=== PATIENT | female | born 1985 | race Caucasian/White ===

== ENCOUNTER 2016-09-17 22:30 | Emergency (ER) | payer OTHER ==
[~2016-09-17] VITALS: Ht 172.7 cm; Wt 71.9 kg
[~2016-09-17 22:30] MED LIST: VITACAP26 PO
[2016-09-17 22:31] VITALS: TEMP 37.3; Ht 172.7 cm; Wt 71.9 kg
[2016-09-17] MEDS ORDERED: GUAI1TAB55 PO (22:59)
[2016-09-17] MEDS ORDERED: AZIT250T PO (23:44)
[2016-09-17] MEDS ORDERED: ALBUTEROL HFA 8 GM INHALER INH ONE (23:45)
[2016-09-17] MEDS ORDERED: AZITHROMYCIN 250 MG TAB PO ONE (23:45)
[2016-09-17 23:55] VITALS: BP 116/71; PULSE 84; O2SAT 93
--- NOTE | 2016-09-18 06:33 | DIAGNOSTIC IMAGING REPORT ---
CHEST 2 VIEWS ROUTINE CLINICAL HISTORY: coughing/wheezing COMPARISON STUDY: No previous studies for comparison. FINDINGS: The heart is normal in size. There is minor interstitial thickening at the left lung base. There is no lobar consolidation. There are no pleural effusions. There is no failure.[ IMPRESSION: Minimal interstitial opacities at the left lung base. No evidence of lobar consolidation. Electronically signed by: Richy Wilson M.D. 09/18/2016 6:31 AM Dictated Date/Time: 09/18/2016 6:30 AM
--- NOTE | 2016-09-18 22:58 | EMERGENCY ROOM VISIT NOTE ---
History First contact with patient: 22:38 Chief Complaint: FLU LIKE SX Stated Complaint: COLD/BODY ACHE,CONGESTION,COUGH History of Present Illness The patient is a 31 year old female who presents to the Emergency Room with complaints of coughing and wheezing with body aches for the past 3-4 days. The patient has not had significant fever or chills at home. Her cough is not productive. She is without distinct shortness of breath, chest pain, abdominal pain, nausea, or vomiting. She does have some sinus congestion with her symptoms. There is a very mild sore throat that does not affect swallowing. She has not taken anything [id number] today for her symptoms. She rates her discomfort a 6/10. Review of Systems More than 10 systems were reviewed and otherwise negative with the exception of history of present illness. Past Medical/Surgical History Medical Problems: (1) No significant past medical history Surgical Problems: (1) History of appendectomy Family History FH: diabetes mellitus FH: hypertension FH: kidney disease Social History Smoking Status: Current Every Day Smoker Alcohol Use: none Marital Status: Housing Status: lives with family Occupation Status: unemployed Current/Historical Medications Scheduled Azithromycin (Zithromax), 250 MG PO DAILY Scheduled PRN Guaifenesin Ext Rel (Mucinex Ext Rel), 600 MG PO Q12 PRN for CONGESTION Allergies Coded Allergies: No Known Allergies (Unverified , 09/17/16) Physical Exam Vital Signs Date Time Temp Pulse Resp B/P Pulse Ox O2 Delivery O2 Flow Rate FiO2 09/17/16 23:55 84 18 116/71 93 09/17/16 22:31 37.3 83 20 118/77 93 Room Air Pain Rating (0-10): 0 Physical Exam VITALS: Vitals are noted on the nurse's note and reviewed by myself. Vital signs stable. GENERAL: Well-developed, well-nourished, white female, who is in no acute distress and resting comfortably. Patient is cooperative with the examination. HEAD: Normocephalic atraumatic. EARS: External ear normal. External auditory canals clear, tympanic membranes pearly reeves without erythema or effusion bilaterally. EYES: Pupils equal round and reactive to light and accommodation. Conjunctivae without injection, sclerae without icterus. Extraocular movements intact. NOSE: Patent, turbinates without inflammation or discharge. MOUTH: Mucous membranes moist. Tonsils are not enlarged. Pharynx without erythema, blood, or exudate. Uvula midline. Airway patent. NECK: Supple without nuchal rigidity. No lymphadenopathy. No thyromegaly. Cervical spine is nontender. HEART: Regular rate and rhythm without murmurs gallops or rubs. LUNGS: Coarse breath sounds with scant wheezing and rhonchi throughout ABDOMEN: Positive normal bowel sounds x 4. Soft, nontender, without masses or organomegaly. No guarding or rebound tenderness. MUSCULOSKELETAL: No muscle atrophy, erythema, or edema noted. Full range of motion without joint tenderness in all extremities. Medical Decision & Procedures ER Provider Diagnostic Interpretation: CHEST 2 VIEWS ROUTINE CLINICAL HISTORY: coughing/wheezing COMPARISON STUDY: No previous studies for comparison. FINDINGS: The heart is normal in size. There is minor interstitial thickening at the left lung base. There is no lobar consolidation. There are no pleural effusions. There is no failure.[ IMPRESSION: Minimal interstitial opacities at the left lung base. No evidence of lobar consolidation. Medications Administered Medications (Trade) Dose Ordered Sig/Jim Route Start Time Stop Time Status Last Admin Dose Admin Azithromycin (Zithromax Tab) 500 mg NOW ONCE PO 09/17/16 23:45 09/17/16 23:46 DC 09/17/16 23:55 500 MG Albuterol (Ventolin Hfa Inhaler) 2 puffs NOW ONCE INH 09/17/16 23:45 09/17/16 23:46 DC 09/17/16 23:54 2 PUFFS ED Course Physical exam and history were performed. Nursing notes and EMR were reviewed. Patient appears to have coughing and wheezing with rhonchi on examination. The patient does not appear toxic on exam. X-ray was performed and does not show obvious pneumonia. Clinically I suspect that she has a bronchitis. The patient will be treated with Zithromax and albuterol. She was given her first dose of Zithromax here in the department. I recommended that she follow with her primary care physician in the next few days for recheck. She was otherwise invited back to the ER with any new, worsening, or concerning symptoms. The chart was completed utilizing [employer] Voice Recognition Software. Grammatical errors, random word insertions, pronoun errors, and incomplete sentences are an occasional consequence of this system due to software limitations, ambient noise, and hardware issues. Any formal questions or concerns about the content, text, or information contained within the body of this dictation should be directly addressed to the provider for clarification. . Medical Decision Differential diagnosis: Etiologies such as viral syndrome, otitis, pharyngitis, pneumonia, influenza, meningitis, urinary tract infection, sepsis, bacteremia, as well as others were entertained. Impression Primary Impression: Acute bronchitis Departure Information Dispostion Home / Self-Care Condition GOOD Prescriptions Azithromycin (Zithromax) 250 Mg Tab 250 MG PO DAILY for 4 Days, #4 TAB Prov: John Abbott PA-C 09/17/16 Forms HOME CARE DOCUMENTATION FORM, Work Instructions, Additional Instructions: Patient was seen and evaluated today in the emergency department fo medical care. Return to work on 09/20/2016. Please excuse. IMPORTANT VISIT INFORMATION Patient Instructions My [facility] Additional Instructions You were seen and evaluated today on an emergency basis only. This is not a substitute for, or an effort to provide, complete comprehensive medical care. It is not possible to recognize and treat all injuries or illnesses in a single emergency department visit. For this reason it is recommended that you followup with your primary care physician this week with any ongoing or persistent symptoms. Take Zithromax 250 mg daily for the next 4 days Use your albuterol inhaler 2 puffs every 4-6 hours as needed for coughing or wheezing Drink plenty of fluids and remain well hydrated You are welcome to return to the emergency department anytime with new, worsening, or concerning symptoms. Work Instructions Additional Work Instructions: Patient was seen and evaluated today in the emergency department for medical care. Return to work on 09/20/2016. Please excuse.
== END 2016-09-17 23:55 | disposition home or self-care (01) ==
LOC: C.EDB 22:30
DX: J20.9 Acute bronchitis, unspecified (principal); F17.200 Nicotine dependence, unspecified, uncomplicated; Z83.3 Family history of diabetes mellitus; Z82.49 Family history of ischemic heart disease and other diseases of the circulatory system

== ENCOUNTER 2016-11-16 16:55 | Emergency (ER) | payer OTHER ==
[~2016-11-16] VITALS: Ht 172.7 cm; Wt 71.4 kg
[~2016-11-16 16:55] MED LIST changes: +GUAI1TAB55 PO; -VITACAP26 PO
[2016-11-16 16:57] VITALS: TEMP 36.7; Ht 172.7 cm; Wt 71.4 kg
[2016-11-16] MEDS ORDERED: DOCUSATE SODIUM 100 MG/10 ML UDC PO STA (17:12)
[2016-11-16 18:45] VITALS: BP 127/75; PULSE 63; O2SAT 99
--- NOTE | 2016-11-16 21:14 | EMERGENCY ROOM VISIT NOTE ---
ED Visit Note First contact with patient: 17:06 Chief Complaint: My right ear feels blocked. History of Present Illness: Ms. Polk is a 31-year-old white female who ambulates into the ED complaining of a possible foreign body in the right ear canal and decreased hearing. Patient reports her symptoms started approximately 2 weeks ago and they have been constant. She has attempted to get in with a primary care provider but has been on unsuccessful due to her health insurance. She reports that she has been irrigating her ear canal daily without any relief of symptoms. She also reports when she is irrigating she has not noted any foreign material coming from her ear but does report she feel there may be fluid in the ear because she hears a whooshing sensation in the ear. Currently she is reporting that she is not having any pain in the ear. She has not identified any aggravating or alleviating factors related to her symptoms. She has not taken any medications for her symptoms. Associated with her symptoms she reports hearing in her right ear is muffled and decreased. She denies headache, dizziness, lightheadedness, recent head trauma, previous significant ear diseases or surgeries, ear drainage, upper respiratory tract symptoms, nasal drainage, sore throat, fevers, chills, sweats, nausea/vomiting. Review of Systems: As noted above in history of present illness. Past Medical History: Status post appendectomy. Current Medications: Patient denies. Allergies to Medications: Patient denies. Social History: Patient is currently employed; she feels safe in her home environment; she admits to tobacco use and denies alcohol use. Physical Examination: Vital Signs: Date Time Temp Pulse Resp B/P Pulse Ox O2 Delivery O2 Flow Rate FiO2 11/16/16 18:45 63 18 127/75 99 11/16/16 16:57 36.7 79 18 129/ 98 Room Air GENERAL: 31-year-old female in mild distress due to symptoms, nontoxic-appearing , afebrile and hemodynamically stable. NEUROLOGICAL: Awake, alert and oriented to person, place and time. Answering questions appropriately and following commands. Normal gait. Good hand eye coordination. No focal motor or sensory deficits. SKIN: Warm, dry and pink. No soft tissue eruptions or trauma noted. HEENT: Atraumatic and normocephalic. No external ear tenderness. Left auditory canal is pink and patent. Left tympanic membrane is pearly reeves with normal light reflex. Right auditory canal is blocked with a cerumen impaction and the tympanic membrane cannot be visualized. She has no tracheal tenderness or erythema of the auditory canal. No preauricular or postauricular lymphadenopathy. No tenderness or erythema over the mastoid processes. ED Course: Patient is assessed as noted above. 5-6 drops of Colace was placed in the ear canal and she was allowed to rest with the affected ear elevated for approximately 20 minutes. Myself and the staff nurse on duty irrigated the ear canal with warm sterile saline and peroxide for approximately 30 minutes and was unable to dislodge her impaction. I did offer the patient to continue and she did not feel that was necessary and requested to be discharged. Patient was educated about today's findings and instructed on her treatment plan ; she verbalizes understanding and agreement with this plan. Clinical Impression: Right auditory canal cerumen impaction. Disposition: Patient discharged home in stable condition; prior to departure she was reassessed and remained that she was pain-free but was still having muffled hearing. Plan: Patient was encouraged to use ibuprofen or acetaminophen as needed for pain. Patient was encouraged to continue your get the ears as we discussed. Patient was encouraged to avoid putting Q-tips in the ear. Patient was encouraged to follow-up with her insurance company and request information on any local ENT specialist affiliated with her insurance. Patient was given the name of Dr. Murphy Duque, the ENT specialist on-call, for definitive care and treatment. Patient was encouraged return the ED for worsening symptoms, ear pain, worsening hearing changes, bloody drainage, fevers or any new/concerning symptoms.
== END 2016-11-16 18:46 | disposition home or self-care (01) ==
LOC: C.EDB 16:56 → C.EDD 18:46
DX: H61.21 Impacted cerumen, right ear (principal); Z72.0 Tobacco use

== ENCOUNTER → 2016-12-28 | Outpatient (CLI) | payer OTHER ==
[2016-12-28 14:46] LABS: URINE APPEARANCE CLEAR (CLEAR); URINE BILIRUBIN NEG (NEG); URINE COLOR YELLOW; URINE NITRITE NEG (NEG); URINE SPECIFIC GRAVITY 1.027 (1.000-1.030); UROBILINOGEN NEG (NEG)
[2016-12-28 15:03] LABS: MANUAL MICROSCOPIC REQUIRED? NO; REVIEW REQ? NO
== END | disposition home or self-care (01) ==
LOC: C.LABSPEC 13:41
PROVIDERS: ATTEND Obstetrics & Gynecology
DX: O99.330 Smoking (tobacco) complicating pregnancy, unspecified trimester (principal); Z3A.00 Weeks of gestation of pregnancy not specified

== ENCOUNTER → 2017-01-06 | Outpatient (CLI) | payer OTHER ==
[2017-01-06 17:18] LABS: BASO % 0.3 %; BASO ABS # 0.02 K/uL (0-0.2); COMPLETE YES; EOS % 1.1 %; HEMATOCRIT 38.8 % (37-47); IG% 0.1 %; LYMPH % 26.5 %; MEAN CELL VOLUME 89.2 fL (80-100); MEAN CORPUSCULAR HEMOGLOBIN 30.1 pg (25-34); MEAN CORPUSCULAR HGB CONC 33.8 g/dl (32-36); MEAN PLATELET VOLUME 10.1 fL (7.4-10.4); MONO % 5.4 %; NEUT % 66.6 %; PLATELET COUNT 178 K/uL (130-400); RED BLOOD COUNT 4.35 M/uL (4.2-5.4); WHITE BLOOD COUNT 7.93 K/uL (4.8-10.8)
[2017-01-10 02:32] LABS: CHLAMYDIA TRACH RNA*** NOT DETECTED (NOT DETECTED); GC (NEIS GONORRHOEAE)RNA** NOT DETECTED (NOT DETECTED)
== END | disposition home or self-care (01) ==
LOC: C.LAB1850 16:29
PROVIDERS: ATTEND Obstetrics & Gynecology
DX: Z36 Encounter for antenatal screening of mother (principal)

== ENCOUNTER → 2017-01-06 | Outpatient (CLI) | payer OTHER | LOC: C.PAPS 08:49 | PROVIDERS: ATTEND Obstetrics & Gynecology | DX: Z34.91 Encounter for supervision of normal pregnancy, unspecified, first trimester (principal) ==

== ENCOUNTER → 2017-02-28 | Outpatient (CLI) | payer OTHER ==
[2017-02-28 16:11] LABS: GTGD 50 Grams
== END | disposition home or self-care (01) ==
LOC: C.LAB1850 13:37
PROVIDERS: ATTEND Obstetrics & Gynecology
DX: Z34.91 Encounter for supervision of normal pregnancy, unspecified, first trimester (principal)

== ENCOUNTER → 2017-03-14 | Outpatient (CLI) | payer OTHER | END | disposition home or self-care (01) | LOC: C.PATHSPEC 15:42 | PROVIDERS: ATTEND Obstetrics & Gynecology | DX: R87.610 Atypical squamous cells of undetermined significance on cytologic smear of cervix (ASC-US) (principal); R87.612 Low grade squamous intraepithelial lesion on cytologic smear of cervix (LGSIL) ==

== ENCOUNTER → 2017-06-21 | Outpatient (CLI) | payer OTHER ==
[~2017-06-21] MED LIST changes: -GUAI1TAB55 PO; +PRENTAB26 PO
[2017-06-21 17:35] LABS: HEMATOCRIT 33.5 % (37-47); HEMOGLOBIN 11.2 g/dL (12.0-16.0)
== END | disposition home or self-care (01) ==
LOC: C.LAB1850 06-21 17:01 → EDSTATUS 06-22 09:49
PROVIDERS: ATTEND Obstetrics & Gynecology
DX: Z34.83 Encounter for supervision of other normal pregnancy, third trimester (principal)

== ENCOUNTER → 2017-06-21 | Outpatient (CLI) | payer OTHER | END | disposition home or self-care (01) | LOC: C.LABSPEC 17:41 | PROVIDERS: ATTEND Obstetrics & Gynecology | DX: Z34.83 Encounter for supervision of other normal pregnancy, third trimester (principal) ==

== ENCOUNTER → 2017-07-12 | Outpatient (CLI) | payer OTHER | END | disposition home or self-care (01) | LOC: C.LABSPEC 15:50 | PROVIDERS: ATTEND Obstetrics & Gynecology | DX: Z34.83 Encounter for supervision of other normal pregnancy, third trimester (principal) ==

== ENCOUNTER 2017-07-18 23:55 | Outpatient (CLI) | payer OTHER ==
[~2017-07-18] VITALS: Ht 170.2 cm; Wt 72.0 kg
[2017-07-19 00:40] VITALS: Ht 170.2 cm; Wt 72.0 kg
[2017-07-19] MEDS ORDERED: PRENTAB26 PO (21:37)
== END 2017-07-19 02:25 | disposition home or self-care (01) ==
LOC: C.LD 23:55 → C.OPB 23:55
PROVIDERS: ATTEND Obstetrics & Gynecology
DX: O62.9 Abnormality of forces of labor, unspecified (principal); Z3A.00 Weeks of gestation of pregnancy not specified

== ENCOUNTER 2017-07-19 20:33 | Outpatient (CLI) | payer OTHER ==
[~2017-07-19] VITALS: Ht 170.2 cm; Wt 83.2 kg
[2017-07-19 21:37] VITALS: Ht 170.2 cm; Wt 83.2 kg
[2017-07-19] MEDS ORDERED: PRENTAB26 PO (21:37)
== END 2017-07-19 23:52 | disposition home or self-care (01) ==
LOC: C.LD 20:33 → C.OPB 20:33
PROVIDERS: ATTEND Obstetrics & Gynecology
DX: Z34.83 Encounter for supervision of other normal pregnancy, third trimester (principal); Z3A.37 37 weeks gestation of pregnancy

== ENCOUNTER 2017-07-20 16:01 | Inpatient (IN) | payer OTHER ==
[~2017-07-20] VITALS: Ht 170.2 cm; Wt 83.2 kg
[2017-07-20] MEDS ORDERED: LACTATED RINGER'S 1000ML 1,000 ML IV PRN (16:22)
[2017-07-20] MEDS ORDERED: LACTATED RINGER'S 1000ML 1,000 ML IV SCH (16:22)
[2017-07-20 17:01] LABS: HEMATOCRIT 33.1 % (37-47); MEAN CELL VOLUME 91.7 fL (80-100); MEAN CORPUSCULAR HEMOGLOBIN 30.5 pg (25-34); MEAN CORPUSCULAR HGB CONC 33.2 g/dl (32-36); MEAN PLATELET VOLUME 11.2 fL (7.4-10.4); PLATELET COUNT 189 K/uL (130-400); RED CELL DISTRIBUTION WIDTH CV 14.1 % (11.5-14.5); RED CELL DISTRIBUTION WIDTH SD 46.7 fL (36.4-46.3); WHITE BLOOD COUNT 13.54 K/uL (4.8-10.8)
[2017-07-20 17:12] VITALS: Ht 170.2 cm; Wt 83.2 kg
[2017-07-20] MEDS ORDERED: FENTANYL CITRATE INJ 50 MCG/1 ML 2 ML VIAL ONE (17:41)
[2017-07-20] MEDS ORDERED: BUPIVACAINE 0.25% 30 ML VIAL ONE (17:41)
[2017-07-20] MEDS ORDERED: EpHEDrine SULFATE INJ 50 MG/ML AMP ONE (17:41)
[2017-07-20] MEDS ORDERED: FENTANYL 2MCG/ML ROPIV 1.25MG/ML 100ML BAG EPI ONE (17:42)
[2017-07-20] MEDS ORDERED: NALOXONE HCL INJ 1 MG in SODIUM CHLORIDE 0.9% 1000ML 1,000 ML IV PRN (18:51)
[2017-07-20] MEDS ORDERED: LACTATED RINGER'S 1000ML 500 ML IV PRN (18:51)
[2017-07-20] MEDS ORDERED: DiphenhydrAMINE HCL 50 MG/ML VIAL IV PRN (19:00)
[2017-07-20] MEDS ORDERED: FENTANYL 2MCG/ML ROPIV 1.25MG/ML 100ML BAG EPI PRN (19:00)
[2017-07-20] MEDS ORDERED: ONDANSETRON INJ 2 MG/ML 2 ML VIAL IV PRN (19:00)
[2017-07-20] MEDS ORDERED: NALOXONE HCL INJ 0.4 MG/1 ML VIAL/CARP IV PRN (19:00)
[2017-07-20] MEDS ORDERED: EpHEDrine SULFATE INJ 50 MG/ML AMP IV PRN (19:00)
[2017-07-20] MEDS ORDERED: NALBUPHINE HCL INJ 10 MG/ML AMP IV PRN (19:00)
[2017-07-20] MEDS ORDERED: OXYTOCIN 30 UNITS/500ML NSS IV ONE (21:13)
[2017-07-20] MEDS ORDERED: HYDROCORTISONE ACETATE 25 MG SUPP PR PRN (21:45)
[2017-07-20] MEDS ORDERED: OXYCODONE/ACETAMINOPHEN 5-325 TAB PO PRN (21:45)
[2017-07-20] MEDS ORDERED: LANOLIN OINT EXT PRN (21:45)
[2017-07-20] MEDS ORDERED: BENZOCAINE 20% AER SPR 82.5 GM CAN EXT PRN (21:45)
[2017-07-20] MEDS ORDERED: OXYTOCIN 30 UNITS/500ML NSS IV PRN (21:45)
[2017-07-20] MEDS ORDERED: ACETAMINOPHEN 325 MG TAB PO PRN (21:45)
[2017-07-20] MEDS ORDERED: SUPERCREAM 0.870 % 15GM JAR EXT PRN (21:45)
--- NOTE | 2017-07-20 22:13 | Anesthesia Procedure Note ---
Anesthesia Epidural Removal Nt Date & Time Jul 20, 2017 at 22:13 Vital Signs Pain Intensity: 8.0 Notes Mental Status: alert / awake / arousable, participated in evaluation Nausea / Vomiting: adequately controlled Pain: adequately controlled Airway Patency, RR, SpO2: stable & adequate BP & HR: stable & adequate Hydration State: stable & adequate Neuraxial Anesthesia: was administered Anesthetic Complications: no major complications apparent, pt satisfied with anesthetic care Epidural: removed without complications, with tip intact
--- NOTE | 2017-07-20 22:40 | DELIVERY SUMMARY ---
DATE OF OPERATION: 07/20/2017 PREOPERATIVE DIAGNOSES: 1. Intrauterine at 37- 2/7 weeks. 2. Active labor. POSTOPERATIVE DIAGNOSES: 1. Intrauterine at 37-2/7 weeks. 2. Active labor. 3. Meconium. PROCEDURES: 1. Epidural anesthesia. 2. Amniotomy. 3. Normal spontaneous vaginal delivery. 4. Second degree perineal laceration with repair. SURGEON: Jeanne Song MD. BARKEEPER: None. ESTIMATED BLOOD LOSS: 400 mL. ANESTHESIA: Epidural. DESCRIPTION OF THE PROCEDURE: The patient presented to labor and delivery and she was 6 to 7 cm dilated and mary every 2 minutes. She was admitted for labor. She underwent an epidural anesthetic. Then at 7 cm, she was ruptured for thin but very brown meconium fluid. The patient progressed quickly to complete complete and +2 station with variables and pushed over 2 contractions to deliver a viable male infant in VLAD presentation. The nose and mouth were DeLee suctioned on the perineum. There was no nuchal cord. The rest of the was then delivered without difficulty. There was an immediate cry so the nose and mouth were bulb suctioned and the cord was clamped and cut and the was handed over to the awaiting nursing on the warmer for drying and attention. Cord blood and segment were obtained. Placenta was delivered spontaneously intact with a 3-vessel cord. Cervix, sulci and rectum were examined and found to be intact. Second degree perineal laceration was repaired with 3-0 Vicryl in normal standard fashion. Hemostasis was obtained with dilute Pitocin and fundal massage. Estimated blood loss was 400 mL. Apgars were 8 and 9. Mother and baby doing well at the end of the delivery. I attest to the content of the Intraoperative Record and any orders documented therein. Any exception s are noted below.
[2017-07-20] MEDS: IBUPROFEN 600 MG TAB PO PRN (23:01)
[2017-07-21] VITALS (7 sets, daily range): BP systolic 101–121; BP diastolic 63–72; PULSE 68–76; TEMP 36.2–36.7; O2SAT 98–99
[2017-07-21] MEDS: IBUPROFEN 600 MG TAB PO PRN ×4 (03:56→21:24)
--- NOTE | 2017-07-21 06:58 | Progress Note ---
Subjective Jul 21, 2017. Subjective conversation w/ patient (Patient seen and examined at bedside) Ambulation: limited ambulation Voiding: no voiding problems Passing Gas: Yes Diet Tolerance: Regular Diet Lochia: Moderate Feeding Type: Breast Feeding Pain: 0.5/10, controlled with analgesia Review of Systems Constitutional: No fever, No chills, No sweats Respiratory: No cough, No shortness of breath Cardiac: No chest pain, No edema Breast: No breast pain Abdomen: No pain, No nausea, No vomiting Female : No dysuria Objective Vital Signs Date Time Temp Pulse Resp B/P (MAP) Pulse Ox O2 Delivery O2 Flow Rate FiO2 07/21/17 03:55 36.6 68 18 114/72 (86) Room Air 07/21/17 00:40 Room Air 07/21/17 00:40 36.7 74 18 109/63 (78) Room Air Physical Exam General Appearance: WELL-APPEARING, WD/WN, NO APPARENT DISTRESS Respiratory/Chest: chest non-tender, lungs clear, normal breath sounds, no respiratory distress, no accessory muscle use Cardiovascular: regular rate, rhythm, no edema, no gallop, no murmur Abdomen: normal bowel sounds, non tender, soft Fundus: Firm, Tender, Relation to Umbilicus (1cm below) Extremities: normal inspection, no pedal edema, no calf tenderness Laboratory Results Last 24 Hours Test 07/20/17 16:43 07/21/17 04:44 White Blood Count 13.54 K/uL Red Blood Count 3.61 M/uL Hemoglobin 11.0 g/dL Hematocrit 33.1 % Mean Corpuscular Volume 91.7 fL Mean Corpuscular Hemoglobin 30.5 pg Mean Corpuscular Hemoglobin Concent 33.2 g/dl RDW Standard Deviation 46.7 fL RDW Coefficient of Variation 14.1 % Platelet Count 189 K/uL Mean Platelet Volume 11.2 fL Medications Current Inpatient Medications Medications (Trade) Dose Ordered Sig/Jim Route Start Time Stop Time Status Last Admin Dose Admin Oxytocin (Pitocin IV) 30 units UD PRN IV 07/20/17 21:45 08/19/17 21:44 Benzocaine (Dermoplast Aero Spr) 1 appln PRN PRN EXT 07/20/17 21:45 08/19/17 21:44 Cocaine HCl (Supercream 0.870% Cr) BID PRN EXT 07/20/17 21:45 08/03/17 21:44 Hydrocortisone Acetate (Anusol Hc Supp) [address] 07/20/17 21:45 08/19/17 21:44 Lanolin (Lanolin Oint) PRN PRN EXT 07/20/17 21:45 08/19/17 21:44 Prenat Multivit/ Aligner/Iron/Folic Ac ( Vitamin Tab) 1 tab DAILY PO 07/21/17 08:00 08/20/17 07:59 Ibuprofen (Motrin Tab) 600 mg Q4H PRN PO 07/20/17 21:45 08/19/17 21:44 07/21/17 03:56 600 MG Acetaminophen (Tylenol Tab) 650 mg Q6H PRN PO 07/20/17 21:45 08/19/17 21:44 Oxycodone/ Acetaminophen (Percocet 5-325mg Tab) 1 tab Q4H PRN PO 07/20/17 21:45 08/03/17 21:44 Docusate Sodium (coLACE CAP) 100 mg BID PO 07/21/17 08:00 08/20/17 07:59 Diphtheria/ Pertussis/Tetanus Vacc (Adacel Inj) 0.5 ml ONCE ONCE IM. 07/21/17 09:00 07/21/17 09:01 Assessment and Plan Problem List Medical Problems: (1) Acute bronchitis Status: Acute (2) Impacted cerumen of right ear Status: Acute Post- Day#: 1 Continue Routine Care: 32 year old [id number] s/p NVD day 1 - A+, rubella immune, GBS -ve - patient doing well clinically - continue encouraging ambulation and - monitor lochia - vitals reviewed and wnl - Hgb 11 on arrival, recheck ordered for today - will review d/c instructions as pt would like to d/c tonight Resident Physician Supervision Note: I interviewed and examined the patient. Discussed with Dr. Stark and agree with findings and plan as documented in the note. Any exceptions or clarifications are listed here: Doing well. Patient would like d/c at 24 hrs but not doing well breast feeding so will need to see how it goes. Documented By: Jeanne Song Resident Tracking Resident Involvement: Resident Care Provided Care Provided: OB Delivery
[2017-07-21 07:49] LABS: HEMATOCRIT 31.9 % (37-47); HEMOGLOBIN 10.6 g/dL (12.0-16.0)
[2017-07-21] MEDS: DOCUSATE SODIUM 100 MG CAP PO SCH ×2 (08:02→19:35)
[2017-07-21] MEDS: PRENATAL VITAMIN TAB PO SCH (08:02)
[2017-07-21] MEDS ORDERED: DIPHTHERIA/TETANUS/PERTUSSIS 0.5 ML SYR/VIAL IM. ONE (09:00)
--- NOTE | 2017-07-21 09:00 | Discharge Instructions ---
Discharge Instructions Date of Service Jul 21, 2017. Admission Reason for Admission: Check Labor Discharge Discharge Diagnosis / Problem: Vaginal Delivery Discharge Goals Goal(s): Routine recovery after delivery Medications Continue Dispensed Medications: supercream, dermaplast, tucks, lansinoh Activity Recommendations Activity Limitations: per Instructions/Follow-up section . Instructions / Follow-Up Instructions / Follow-Up ACTIVITY RECOMMENDATIONS: * Gradual return to full activity over the next 2-3 weeks. * No lifting - nothing heavier than baby over the next 2-3 weeks. * Do not engage in vigorous exercise, sexual activity or sports until cleared by your physician. * Do not drive or operate any motorized equipment until cleared by your physician. * You may shower/bathe daily. MEDICATIONS: For discomfort or pain, you may use Acetaminophen (Tylenol), Ibuprofen (Advil), or Naproxen (Aleve) following the package directions. For constipation you may use Colace following the package directions. BREAST CARE: If you are not breast feeding: * Wear a supportive bra 24 hours a day for one to two weeks. * Avoid stimulating your breasts and nipples as much as possible during the first few weeks after delivery. * When taking a shower, have the warm water hit your back, not breasts. * When your breasts feel full, apply ice packs. Usually three to four times a day helps ease the discomfort. * Take a mild pain medication (Tylenol / Motrin) when you are uncomfortable. If breast feeding: * Use breast milk to lubricate nipples. Lansinoh cream may be used for sore nipples. You do not need to remove cream prior to breast feeding. If using a different brand of cream, check the label for directions regarding removal of cream prior to nursing. * Wear a supportive bra. * If having problems with breasts or breast feeding, call a sales and service consultant or your health care provider. EPISIOTOMY CARE: After delivery, if you have an episiotomy (stitches), the following steps will ease discomfort and aid healing. * For the first 24 hours after delivery, place ice packs next to your episiotomy to help reduce swelling. * After the first 24 hour-period, sitz baths, either portable or in the tub, are suggested. A shower with a shower arm sprayed over the episiotomy may be comforting. * Debbie care should be done after each voiding and bowel movement. Squirt warm water from a plastic bottle over the perineum (region of the body between the anus and urinary opening) and pat dry. * Use Dermoplast to ease discomfort. Shake container. [place] directly over the episiotomy. Place a Tucks on a clean sanitary pad next to your episiotomy. SPECIAL CARE INSTRUCTIONS: When you are discharged from the hospital, it is important for you to follow the instructions listed below: * During the first week at home, you should be able to care for yourself and your baby. In addition, the usual light household activities are encouraged. * Limit your activities to the way you feel. Do not try to clean the house or move furniture. Be sensible. * If you actively engage in sports and have done so up until the time of your delivery, you may resume these activities as soon as you feel able. This may take up to one month or even longer. Use good judgment. * Continue to take your vitamins for at least six weeks after the of your baby. * Your diet need not be limited unless you were on a special diet before your delivery. Breast-feeding mothers need around 2500 calories per day and at least 64-80 ounces of fluid per day (8 to 10 glasses). * You should eat foods from the four major food groups. Crash diets or fad diets are to be avoided. Eating lean meats, fresh fruits and vegetables, low-fat dairy products, high fiber foods and a regular exercise program, will help you get back to your pre- weight without putting your health at risk. * Constipation is sometimes a problem after delivery. Take a mild laxative as needed. If breast feeding, Milk of Magnesia is acceptable to use. You may use a suppository or Fleets enema if no episiotomy. * A daily shower or tub bath is suggested. Be sure to thoroughly and gently dry the perineum. * A bloody vaginal discharge will usually continue until around four weeks post . A small amount of bleeding may continue for as long as six weeks. Vaginal discharge changes from the bright red bleeding after delivery to pink then brownish and finally yellowish-pink before becoming white and disappearing. * Bleeding may increase with activity. Your first period may come in 4-8 weeks. If you are breast feeding, your period may be delayed even longer. * [place] (sex) can begin whenever both you and your partner feel comfortable and do not have any form of genital infection. It is recommended that you wait at least six weeks for internal and external healing to occur. If you have questions, please talk to your health care practitioner. A condom should be used to prevent infection and . * Foreplay, gentle intercourse and lubrication is very important the first several times to prevent pain. A water-based lubricant such as K-Y jelly or Astroglide may be used. * If you have RH negative blood and your baby is RH positive, you will receive RHOGAM by injection prior to discharge. The nurse will give you a card to keep with you that has the date and place that you received RHOGAM after delivery. * During your care, you had a Rubella screen done to check for the presence of rubella antibodies in your blood. If your test was negative, you will receive a Rubella vaccine prior to discharge. This vaccine may cause a fever, soreness at the injection site and flu-like symptoms. If these symptoms persist, notify your health care practitioner. is not advised for one month after a Rubella vaccine. * Verbalizes understanding of car seat law as reviewed with patient nursing. * Car Seat hand-out given and reviewed with patient by nursing. * Shaken baby information reviewed with patient by nursing. Call you doctor if: * Heavy bleeding (saturating several pads an hour) or passing clots the size of your fist. * A fever >101 degrees F (38.3 degrees C) on two occasions four hours apart and /or chills. * Unusual pain in the pelvic or vaginal areas. * "Baby Blues" lasting longer than two weeks. If you have any questions or concerns, call your health care practitioner at . FOLLOW UP VISIT: * Please call the office at to schedule a 6 week examination. It is important you keep this appointment. It is important for you to make arrangements for either yearly or twice yearly check-ups thereafter. Current Hospital Diet Patient's current hospital diet: Regular OB Diet Discharge Diet Recommended Diet: Regular Diet Pending Studies Studies pending at discharge: no Medical Emergencies . Who to Call and When: Medical Emergencies: If at any time you feel your situation is an emergency, please call 911 immediately. . Non-Emergent Contact Non-Emergency issues call your: Primary Care Provider . . "Provider Documentation" section prepared by Jonny Link. . VTE Core Measure Inpt VTE Proph given/why not?: Treatment not indicated
[2017-07-22] MEDS: IBUPROFEN 600 MG TAB PO PRN (05:40)
--- NOTE | 2017-07-22 06:09 | Progress Note ---
Subjective Jul 22, 2017. Subjective conversation w/ patient (Patient seen and examined at bedside. Reports no overnight events) Ambulation: ambulating normally Voiding: no voiding problems Passing Gas: Yes Diet Tolerance: Regular Diet Lochia: Moderate Feeding Type: Breast Feeding Pain: Minimal and well controlled with analgesia Review of Systems Constitutional: No fever, No chills, No sweats Respiratory: No cough, No sputum, No wheezing Cardiac: No chest pain Breast: No breast pain Abdomen: No pain, No nausea, No vomiting Objective Vital Signs Date Time Temp Pulse Resp B/P (MAP) Pulse Ox O2 Delivery O2 Flow Rate FiO2 07/21/17 23:45 36.5 71 18 121/71 (88) Room Air 07/21/17 23:45 Room Air 07/21/17 19:35 36.2 69 20 112/70 (84) 99 Room Air 07/21/17 16:30 36.3 68 20 116/68 (84) 98 Room Air 07/21/17 16:30 98 Room Air 07/21/17 11:20 36.5 68 20 101/66 (78) 07/21/17 08:15 Room Air 07/21/17 08:15 36.4 76 20 103/66 (78) Physical Exam General Appearance: WELL-APPEARING, WD/WN, NO APPARENT DISTRESS Respiratory/Chest: chest non-tender, lungs clear, normal breath sounds, no respiratory distress, no accessory muscle use Cardiovascular: regular rate, rhythm, no edema, no gallop, no murmur Abdomen: normal bowel sounds, non tender, soft Fundus: Firm, Tender, Relation to Umbilicus (2 cm below) Extremities: no pedal edema, no calf tenderness Laboratory Results Last 24 Hours Test 07/21/17 07:32 Hemoglobin 10.6 g/dL Hematocrit 31.9 % Medications Current Inpatient Medications Medications (Trade) Dose Ordered Sig/Jim Route Start Time Stop Time Status Last Admin Dose Admin Oxytocin (Pitocin IV) 30 units UD PRN IV 07/20/17 21:45 08/19/17 21:44 Benzocaine (Dermoplast Aero Spr) 1 appln PRN PRN EXT 07/20/17 21:45 08/19/17 21:44 Cocaine HCl (Supercream 0.870% Cr) BID PRN EXT 07/20/17 21:45 08/03/17 21:44 Hydrocortisone Acetate (Anusol Hc Supp) 25 mg BID PRN ME 07/20/17 21:45 08/19/17 21:44 Lanolin (Lanolin Oint) PRN PRN EXT 07/20/17 21:45 08/19/17 21:44 Prenat Multivit/ [place]/Iron/Folic Ac ( Vitamin Tab) 1 tab DAILY PO 07/21/17 08:00 08/20/17 07:59 07/21/17 08:02 1 TAB Ibuprofen (Motrin Tab) 600 mg Q4H PRN PO 07/20/17 21:45 08/19/17 21:44 07/22/17 05:40 600 MG Acetaminophen (Tylenol Tab) 650 mg Q6H PRN PO 07/20/17 21:45 08/19/17 21:44 Oxycodone/ Acetaminophen (Percocet 5-325mg Tab) 1 tab Q4H PRN PO 07/20/17 21:45 08/03/17 21:44 Docusate Sodium (coLACE CAP) 100 mg BID PO 07/21/17 08:00 08/20/17 07:59 07/21/17 19:35 100 MG Assessment and Plan Problem List Medical Problems: (1) Acute bronchitis Status: Acute (2) Impacted cerumen of right ear Status: Acute Post- Day#: 2 Continue Routine Care: 32 year old [id number] s/p NVD day 2 - A+, rubella immune, GBS -ve - patient doing well clinically - continue encouraging ambulation and - monitor lochia - vitals reviewed and wnl - Hgb 11 --> 10.6 - will review d/c instructions as pt would like to d/c today Resident Physician Supervision Note: I was present with Dr. Link during the history and exam. I discussed the case with the resident and agree with the findings and plan as documented in the note. Any exceptions or clarifications are listed here: PPD#2 Doing well. Discharge today. RTO 6w. Documented By: Jacqueline Barillas Resident Tracking Resident Involvement: Resident Care Provided Care Provided: OB Delivery
[2017-07-22 07:23] VITALS: BP 131/72; PULSE 79; TEMP 36.4; O2SAT 100
[2017-07-22] MEDS: PRENATAL VITAMIN TAB PO SCH (08:33)
[2017-07-22] MEDS: DOCUSATE SODIUM 100 MG CAP PO SCH (08:33)
[2017-07-22 11:15] VITALS: BP_DIAS 72; PULSE 79; TEMP 36.4
== END 2017-07-22 11:15 | disposition home or self-care (01) | DRG 775 ==
LOC: C.OPB 16:01 → C.LD 16:01 → C.OPB 16:23 → C.OBG 07-21 00:05
PROVIDERS: ADMIT Obstetrics & Gynecology; ATTEND Obstetrics & Gynecology
PROC: 0KQM0ZZ Repair Perineum Muscle, Open Approach (ICD-10-PCS; principal; 2017-07-20)
PROC: 10E0XZZ Delivery of Products of Conception, External Approach (ICD-10-PCS; principal; 2017-07-20)
DX: O70.1 Second degree perineal laceration during delivery (principal); O77.0 Labor and delivery complicated by meconium in amniotic fluid; Z3A.37 37 weeks gestation of pregnancy; Z37.0 Single live birth